=== PATIENT | male | born 1975 | race Two or more races ===

== ENCOUNTER 2021-09-25 08:06 | Outpatient (CLI) | payer OTHER | END 2021-09-25 08:17 | disposition home or self-care (01) | LOC: RX STUDY 08:06 | PROVIDERS: ATTEND Internal Medicine Gastroenterology | DX: K59.09 Other constipation (principal); K56.600 Partial intestinal obstruction, unspecified as to cause; K57.32 Diverticulitis of large intestine without perforation or abscess without bleeding ==